=== PATIENT | female | born 1945 | race Caucasian/White ===

== ENCOUNTER 2021-09-01 05:51 | Day surgery (SDC) | payer MEDICARE ==
[2021-08-31 11:50] LABS: BASOPHILS % (AUTO) 0.7 % (0.0-5.0); EOSINOPHILS % (AUTO) 1.9 % (0.0-8.0); HEMATOCRIT 40.5 % (36-48); LYMPHOCYTES % (AUTO) 29.5 % (21.0-51.0); MEAN CORPUSCULAR HEMOGLOBIN 30.8 pg (27.0-33.0); MEAN CORPUSCULAR HGB CONC 33.8 g/dL (32.0-36.0); MONOCYTES % (AUTO) 6.8 % (3.0-13.0); PLATELET COUNT (AUTO) 347 K/uL (130-400); RED BLOOD CELL COUNT(AUTO) 4.45 MIL/uL (4.00-5.50); RED CELL DISTRIBUTION WIDTH 12.8 % (11.0-15.5); WHITE BLOOD COUNT (AUTO) 7.3 K/uL (4.8-10.8)
[2021-08-31 11:59] LABS: POTASSIUM 5.3 mmol/L (3.5-5.1)
[2021-08-31 14:47] VITALS: BP 133/70
[2021-09-01] VITALS (14 sets, daily range): BP systolic 106–128; BP diastolic 50–91
[~2021-09-01] VITALS: Ht 162.6 cm; Wt 71.5 kg
[~2021-09-01 05:51] MED LIST: ATOR40TA71 PO; BISACODYL 10 MG SUPP.RECT RC PRN; CEFAZOLIN SODIUM 1 GM VIAL IVP ONE; DONE10TA43 PO; DULO30CA52 PO; DULO60CA64 PO; HYDROCODONE/ACETAMINOPHEN 5/325 MG TAB PO PRN; LEVO100T12 PO; LOSA100T58 PO; METF-444 PO; OMEP40CA21 PO; TEMAZEPAM 15 MG CAPSULE PO PRN
[2021-09-01] MEDS ORDERED: 0.9%NACL 1000ML 1,000 ML IV ONE (06:28)
[2021-09-01] MEDS ORDERED: CEFAZOLIN SODIUM 1 GM VIAL ONE (06:28)
[2021-09-01] MEDS ORDERED: LIDOCAINE HCL MDV 0.5% 50ML VIAL IJ ONE (07:22)
[2021-09-01] MEDS ORDERED: SODIUM BICARB [NEONATAL] 4.2% 10ML SYG ONE (07:22)
[2021-09-01] MEDS ORDERED: BUPIVACAINE/PF 0.5% 30ML VIAL ONE (07:22)
[2021-09-01] MEDS ORDERED: SUCCINYLCHOLINE CHLORIDE 20 MG/ML 10 ML VIAL ONE (08:35)
[2021-09-01] MEDS ORDERED: MIDAZOLAM HCL 1 MG/ML 2ML VIAL ONE (08:36)
[2021-09-01] MEDS ORDERED: NEOSTIGMINE 5MG/5ML SYR IV ONE (08:36)
[2021-09-01] MEDS ORDERED: FENTANYL CITRATE PF 50 MCG/1 ML 2ML VIAL ONE (08:36)
[2021-09-01] MEDS ORDERED: PROPOFOL 10 MG/ML 20ML VIAL IV ONE (08:36)
[2021-09-01] MEDS ORDERED: IOPAMIDOL 10 ML VIAL ONE (08:37)
== END 2021-09-01 10:35 | disposition home or self-care (01) ==
LOC: SUH 05:51 → DAH 05:51 → SUH 10:35
PROVIDERS: ATTEND Neurological Surgery
DX: M53.3 Sacrococcygeal disorders, not elsewhere classified (principal); E11.9 Type 2 diabetes mellitus without complications; Z79.01 Long term (current) use of anticoagulants; Z79.899 Other long term (current) drug therapy; Z98.890 Other specified postprocedural states; Z90.710 Acquired absence of both cervix and uterus; Z90.49 Acquired absence of other specified parts of digestive tract; Z79.890 Hormone replacement therapy; Z79.84 Long term (current) use of oral hypoglycemic drugs
CPT/HCPCS: 87426; 80048; 85025; 36415; 93005; 72202; 82948 ×2; A6260; G0260; A4215 ×2; J3010; J0690; J2710; J0330; J7030; J3490 ×3; J2250; J2704; J1030 ×2; Q9966; A4223; A4222; A4221; A4663; A4216

== ENCOUNTER → 2021-09-30 | Outpatient (CLI) | payer MEDICARE ==
[~2021-09-30] MED LIST changes: -BISACODYL 10 MG SUPP.RECT RC PRN; -CEFAZOLIN SODIUM 1 GM VIAL IVP ONE; +GADOTERATE MEGLUMINE 10 MMOL/20 ML VIAL IV ONE; -HYDROCODONE/ACETAMINOPHEN 5/325 MG TAB PO PRN; -TEMAZEPAM 15 MG CAPSULE PO PRN
== END | disposition home or self-care (01) ==
LOC: RAH 07:35
PROVIDERS: ATTEND Neurological Surgery
DX: M51.16 Intervertebral disc disorders with radiculopathy, lumbar region (principal); M47.26 Other spondylosis with radiculopathy, lumbar region; M48.061 Spinal stenosis, lumbar region without neurogenic claudication; M41.86 Other forms of scoliosis, lumbar region
CPT/HCPCS: 72158; A9575

== ENCOUNTER 2021-10-09 09:00 | Observation (INO) | payer MEDICARE ==
[~2021-10-09] VITALS: Ht 160 cm; Wt 68.9 kg
[~2021-10-09 09:00] MED LIST changes: -GADOTERATE MEGLUMINE 10 MMOL/20 ML VIAL IV ONE
[2021-10-09 10:14] LABS: BASOPHILS % (AUTO) 0.6 % (0.0-5.0); EOSINOPHILS % (AUTO) 2.8 % (0.0-8.0); HEMATOCRIT 42.7 % (36-48); LYMPHOCYTES % (AUTO) 26.6 % (21.0-51.0); MEAN CORPUSCULAR HGB CONC 32.1 g/dL (32.0-36.0); MEAN CORPUSCULAR VOLUME 93.4 fL (79-99); MONOCYTES % (AUTO) 7.3 % (3.0-13.0); NEUTROPHILS % (AUTO) 62.4 % (40.0-77.0); PLATELET COUNT (AUTO) 355 K/uL (130-400); RED BLOOD CELL COUNT(AUTO) 4.57 MIL/uL (4.00-5.50); RED CELL DISTRIBUTION WIDTH 13.2 % (11.0-15.5); WHITE BLOOD COUNT (AUTO) 7.2 K/uL (4.8-10.8)
[2021-10-09 10:36] LABS: POTASSIUM 5.4 mmol/L (3.5-5.1)
[2021-10-11] MEDS: CEFAZOLIN SODIUM 1 GM VIAL IVP SCH (06:00)
[2021-10-12] MEDS: CEFAZOLIN SODIUM 1 GM VIAL IVP SCH (05:00)
[2021-10-13 12:33] VITALS: BP 116/55
[2021-10-13] MEDS ORDERED: VITAMIN B12 PO (14:13)
[2021-10-13] MEDS ORDERED: ZINC50TA64 PO (14:13)
[2021-10-15] VITALS (20 sets, daily range): BP systolic 105–140; BP diastolic 52–70
[2021-10-15] MEDS ORDERED: 0.9%NACL 1000ML 1,000 ML IV ONE (06:08)
[2021-10-15] MEDS ORDERED: CEFAZOLIN SODIUM 1 GM VIAL ONE (06:52)
[2021-10-15] MEDS ORDERED: MORPHINE PF 100MG/10ML AMP IV ONE (06:53)
[2021-10-15] MEDS ORDERED: BUPIVACAINE/EPI/PF 0.5% 30ML VIAL IJ ONE (06:53)
[2021-10-15] MEDS ORDERED: THROMBIN-JMI 20000 UNIT KIT TP ONE (06:53)
[2021-10-15] MEDS ORDERED: SUCCINYLCHOLINE CHLORIDE 20 MG/ML 10 ML VIAL ONE (07:00)
[2021-10-15] MEDS ORDERED: LIDOCAINE PF 100MG/5ML (2%) SYRINGE 5ML ONE (07:00)
[2021-10-15] MEDS ORDERED: GLYCOPYRROLATE 1 MG/5 ML SYRINGE ONE (07:01)
[2021-10-15] MEDS ORDERED: NEOSTIGMINE 5MG/5ML SYR IV ONE (07:01)
[2021-10-15] MEDS ORDERED: MIDAZOLAM HCL 1 MG/ML 2ML VIAL ONE (07:01)
[2021-10-15] MEDS ORDERED: PROPOFOL 10 MG/ML 20ML VIAL IV ONE (07:01)
[2021-10-15] MEDS ORDERED: DEXAMETHASONE SOD PHOSPHATE 10MG/ML 1ML VIAL ONE ×2 (07:01→07:04)
[2021-10-15] MEDS ORDERED: ONDANSETRON 4MG INJ ONE ×2 (07:02→10:42)
[2021-10-15] MEDS ORDERED: FENTANYL CITRATE PF 50 MCG/1 ML 2ML VIAL ONE ×2 (07:02→10:17)
[2021-10-15] MEDS ORDERED: ROCURONIUM 10MG/1ML SYR 10 MG/ML ML ONE ×2 (07:02→08:26)
[2021-10-15] MEDS: CEFAZOLIN SODIUM 1 GM VIAL IVP SCH ×3 (08:00→20:02)
[2021-10-15] MEDS ORDERED: ARTIFICIAL TEARS 3.5 GM OINTMENT ONE (08:20)
[2021-10-15] MEDS ORDERED: ESMOLOL HCL 10 MG/ML 10 ML VIAL ONE (10:57)
[2021-10-15] MEDS: METFORMIN HCL 500 MG TAB.SR.24H PO SCH (11:16)
[2021-10-15] MEDS: ZINC SULFATE 220 CAPSULE PO SCH (11:21)
[2021-10-15] MEDS: LACTATED RINGERS 1000ML 1,000 ML IV SCH ×2 (11:30→18:06)
[2021-10-15] MEDS ORDERED: 0.9%NACL 10ML VIAL IVP PRN (11:30)
[2021-10-15] MEDS ORDERED: PROMETHAZINE HCL 25 MG/ML 1ML AMPULE IM PRN (11:30)
[2021-10-15] MEDS ORDERED: LABETALOL 20MG SYG IV ONE (11:39)
[2021-10-15] MEDS ORDERED: MORPHINE 4 MG SYG ONE (11:44)
[2021-10-15] MEDS: MORPHINE 2 MG SYG IVP PRN ×2 (12:59→18:05)
[2021-10-15] MEDS: HYDROCODONE/ACETAMINOPHEN 5/325 MG TAB PO PRN ×2 (13:59→17:46)
[2021-10-15] MEDS: DEXAMETHASONE SOD PHOSPHATE 4 MG/ML 1ML VIAL IVP SCH ×2 (18:04→23:25)
[2021-10-15] MEDS ORDERED: ATORVASTATIN 40 MG TABLET PO SCH (21:00)
[2021-10-15] MEDS ORDERED: DULOXETINE HCL 30 MG CAP PO SCH (21:00)
[2021-10-15] MEDS ORDERED: CYANOCOBALAMIN (VITAMIN B-12) 1,000 MCG TABLET PO SCH (21:00)
[2021-10-15] MEDS ORDERED: DONEPEZIL HCL 5 MG TAB PO SCH (21:00)
[2021-10-15] MEDS: BUDESONIDE 0.5 MG/2 ML INH IH SCH (23:15)
[2021-10-15] MEDS: IPRATROPIUM/ALBUTEROL SULFATE 3 ML SOLUTION IH SCH (23:16)
[2021-10-16] VITALS: BP 110/66
[2021-10-16] MEDS: CEFAZOLIN SODIUM 1 GM VIAL IVP SCH (03:04)
[2021-10-16 04:00] VITALS: BP 100/62
[2021-10-16] MEDS: DEXAMETHASONE SOD PHOSPHATE 4 MG/ML 1ML VIAL IVP SCH (05:00)
[2021-10-16] MEDS ORDERED: LEVOTHYROXINE 100 MCG TABLET PO SCH (06:30)
[2021-10-16] MEDS: IPRATROPIUM/ALBUTEROL SULFATE 3 ML SOLUTION IH SCH (06:31)
[2021-10-16] MEDS: BUDESONIDE 0.5 MG/2 ML INH IH SCH (06:31)
[2021-10-16] MEDS ORDERED: PANTOPRAZOLE 40 MG TAB DR PO SCH (07:30)
[2021-10-16] MEDS ORDERED: INSULIN HUMULIN R 100 UNIT/ML 3ML SQ SCH (07:30)
[2021-10-16 08:00] VITALS: BP 104/50
[2021-10-16] MEDS: ZINC SULFATE 220 CAPSULE PO SCH (08:04)
[2021-10-16] MEDS: METFORMIN HCL 500 MG TAB.SR.24H PO SCH (08:04)
[2021-10-16] MEDS ORDERED: DULOXETINE HCL 30 MG CAP PO SCH (09:00)
[2021-10-16] MEDS ORDERED: LOSARTAN 100 MG TABLET PO SCH (09:00)
[2021-10-16] MEDS ORDERED: FAMOTIDINE 20MG TAB PO SCH (09:00)
== END 2021-10-16 10:45 | disposition home or self-care (01) ==
LOC: DAHIP 10-15 05:52 → 4BH 10-15 13:22 → EDSTATUS 10-15 15:00
PROVIDERS: ADMIT Neurological Surgery; ATTEND Neurological Surgery
DX: M48.061 Spinal stenosis, lumbar region without neurogenic claudication (principal); Z20.822 Contact with and (suspected) exposure to COVID-19; I10 Essential (primary) hypertension; E11.9 Type 2 diabetes mellitus without complications; J44.1 Chronic obstructive pulmonary disease with (acute) exacerbation; E03.9 Hypothyroidism, unspecified; K21.9 Gastro-esophageal reflux disease without esophagitis; Z90.710 Acquired absence of both cervix and uterus; Z79.899 Other long term (current) drug therapy
CPT/HCPCS: 80048; 85025; 87426; 36415 ×2; 63047; 63048 ×3; 96374; 96376 ×2; 96375; 83036; 84443; 84484 ×2; 84132; 82948 ×3; 72020; 94664; 94640; A6260; J1100 ×5; G0378 ×23; G0379; A4663; J7120 ×2; A4344; J3010 ×2; J0690 ×4; J3490 ×3; J2710; J0330; J7030; J2001; J2250; J2704; J2274; J2405 ×2; J2270; A4649 ×2; A4215; A4223; A4222; A4221

== ENCOUNTER 2021-11-19 05:48 | Day surgery (SDC) | payer MEDICARE ==
[2021-11-17 10:28] LABS: BASOPHILS % (AUTO) 0.9 % (0.0-5.0); EOSINOPHILS % (AUTO) 7.9 % (0.0-8.0); HEMATOCRIT 39.4 % (36-48); LYMPHOCYTES % (AUTO) 24.4 % (21.0-51.0); MEAN CORPUSCULAR HEMOGLOBIN 30.1 pg (27.0-33.0); MONOCYTES % (AUTO) 6.1 % (3.0-13.0); NEUTROPHILS % (AUTO) 60.5 % (40.0-77.0); PLATELET COUNT (AUTO) 351 K/uL (130-400); RED BLOOD CELL COUNT(AUTO) 4.19 MIL/uL (4.00-5.50); RED CELL DISTRIBUTION WIDTH 13.1 % (11.0-15.5); WHITE BLOOD COUNT (AUTO) 8.2 K/uL (4.8-10.8)
[2021-11-17 10:40] LABS: CREATININE 0.9 mg/dL (0.5-1.5); POTASSIUM 5.4 mmol/L (3.5-5.1)
[2021-11-18 13:34] VITALS: BP 126/66
[2021-11-19] VITALS (12 sets, daily range): BP systolic 115–139; BP diastolic 55–69
[~2021-11-19] VITALS: Ht 160 cm; Wt 68.5 kg
[~2021-11-19 05:48] MED LIST changes: +LIDOCAINE HCL MDV 0.5% 50ML VIAL IJ ONE; +MVIT PO; +VITAMIN B12 PO; +VITAMIN D3 PO; +ZINC50TA64 PO
[2021-11-19] MEDS: CEFAZOLIN SODIUM 1 GM VIAL IVP SCH ×2 (06:00→07:50)
[2021-11-19] MEDS ORDERED: MIDAZOLAM HCL 1 MG/ML 2ML VIAL ONE ×2 (06:54→07:57)
[2021-11-19] MEDS ORDERED: FENTANYL CITRATE PF 50 MCG/1 ML 2ML VIAL ONE (06:55)
[2021-11-19] MEDS ORDERED: PROPOFOL 10 MG/ML 20ML VIAL IV ONE (06:56)
[2021-11-19] MEDS ORDERED: 0.9%NACL 1000ML 1,000 ML IV ONE (06:57)
[2021-11-19] MEDS ORDERED: ONDANSETRON 4MG INJ ONE (08:05)
== END 2021-11-19 09:50 | disposition home or self-care (01) ==
LOC: DAH 05:48
PROVIDERS: ATTEND Neurological Surgery
DX: G56.02 Carpal tunnel syndrome, left upper limb (principal); Z20.822 Contact with and (suspected) exposure to COVID-19; I10 Essential (primary) hypertension; K21.9 Gastro-esophageal reflux disease without esophagitis; E11.9 Type 2 diabetes mellitus without complications; Z90.49 Acquired absence of other specified parts of digestive tract; Z90.710 Acquired absence of both cervix and uterus; Z98.890 Other specified postprocedural states; Z79.84 Long term (current) use of oral hypoglycemic drugs; Z79.82 Long term (current) use of aspirin; Z79.899 Other long term (current) drug therapy
CPT/HCPCS: 80048; 85025; 87426; 36415; 71045; 93005; 64721; 82948 ×2; A6260; A4663; J3010; J0690; J7030; J2250 ×2; J2405; J3490; A4215 ×2; A4222; A4223 ×2; A4221; J2704